=== PATIENT | female | born 1985 | race Caucasian/White ===

== ENCOUNTER → 2021-05-27 | Outpatient (CLI) | payer OTHER ==
--- NOTE | 2021-05-27 11:13 | KCIC ---
EXAMINATION: MRI BRAIN WO CLINICAL HISTORY: Worsening headaches x3 months. Nausea. TECHNIQUE: Multiplanar multisequential images obtained through the brain without intravenous contrast . COMPARISON: None FINDINGS: Acute Change: No evidence of an acute intracranial abnormality. Hemorrhage: No evidence of acute intracranial hemorrhage. Mass Lesion/Mass Effect: No evidence of intracranial mass or extra-axial fluid collection. No signifi cant mass effect. Chronic Change: White matter signal within normal limits for age. Parenchyma: Parenchymal signal and morphology within normal limits. Ventricles: Normal caliber and morphology. Skull Base: Hypothalamic and pituitary regions grossly unremarkable. Craniocervical junction within n ormal limits. No evidence of suspicious marrow replacement process. Vasculature: Large vessel and dural venous sinus flow voids within normal limits. Other: No restricted diffusion. Minimal secretions in the left maxillary sinus. Mastoids clear. Orbit s and extracranial soft tissues unremarkable. IMPRESSION: No evidence of acute intracranial abnormality. Electronically signed by: Mahesh Son DO (05/27/2021 11:10 AM) [id number]
== END ==
LOC: KCIC MRI 09:43
PROVIDERS: ATTEND Family Medicine
DX: G43.901 Migraine, unspecified, not intractable, with status migrainosus (principal)
CPT/HCPCS: 70551